=== PATIENT | male | born 1955 ===

== ENCOUNTER 2016-07-18 08:35 | Day surgery (SDC) | payer BC ==
[~2016-07-18] VITALS: Ht 157.5 cm; Wt 58.9 kg
[2016-07-18 08:50] VITALS: BP 141/100; PULSE 67; TEMP 97.6
[2016-07-18 10:50] VITALS: BP 107/90; PULSE 74; TEMP 97.1
[2016-07-18 11:05] VITALS: BP 104/73; PULSE 60
[2016-07-18 11:20] VITALS: BP 96/37; PULSE 60
[2016-07-18 11:35] VITALS: BP 103/79; PULSE 67
== END 2016-07-18 12:10 | disposition home or self-care (01) ==
LOC: SDCO 08:35
DX: Z12.11 Encounter for screening for malignant neoplasm of colon (principal); D12.2 Benign neoplasm of ascending colon
CPT/HCPCS: OP; J2250; J3010; J7030